=== PATIENT | male | born 1980 | race Caucasian/White ===

== ENCOUNTER 2023-04-09 18:48 | Emergency (ER) | payer OTHER, SELFPAY ==
[2023-04-09 18:50] VITALS: BP 168/83; PULSE 94; RESP 14; TEMP 36.4; O2SAT 98; BMI 30.7
--- NOTE | 2023-04-09 19:22 | RAD_ITS ---
STUDY: X-RAY - RIGHT TIBIA AND FIBULA REASON FOR EXAM: Male, 42 years old. injury TECHNIQUE: 2 view(s) of the tibia and fibula were obtained. COMPARISON: None. FINDINGS: Normal visualized tibia. Normal visualized fibula. There is no demonstrated acute fracture. Mild soft tissue swelling at the ankle. RAD/Tibia & Fibula 2 Views IMPRESSION: Minimal soft tissue swelling at the ankle, otherwise unremarkable x-ray examination of the tibia and fibula. Electronically Signed: Hellen Gomez MD at 19:45 EDT ,
--- NOTE | 2023-04-09 19:38 | EDS_ITS ---
<Statement entered by Freda Alva MD - 04/10/23 00:32> I have personally performed a face to face assessment of the patient and have reviewed the CONSTANZA Note. Patient presents secondary to right lower extremity injury. Patient fell last Tuesday hitting his right leg. He has been taking ibuprofen and trying to elevate his leg. Patient lying in bed no acute distress. Head neck examination reveals no external sign of trauma. Heart is regular rate and rhythm. Lung sounds are clear. Abdomen is soft and nontender. Right lower extremity examination reveals a small area of edema and ecchymosis over the right pillai. There is some dependent ecchymosis noted along the medial ankle. No tenderness over the foot itself. Good distal pulses. Right tib-fib x-rays reveal no evidence of bony injury. Patient is given a single dose of analgesics here and given a prescription for naproxen at home. We discussed the importance of icing and elevating above the level of his heart. He is given Darian wrap's to use for light compression. Return instructions given. HPI History of Present Illness Chief Complaint: Lower Extremity Injury Narrative Narrative: Patient presenting today with an injury to his right lower extremity that he has had since Tuesday. 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 He did not hit his head and denies any other injury. He reports that his work did not allow him to take any days off to get this checked out and he has been on his feet since except for today. He has been taking ibuprofen without relief of his pain. [facility] Medical History no medical history Home Medications naproxen 500 mg tablet 500 mg PO BID #14 tabs 04/09/23 [Rx Last Taken Unknown] Allergy/AdvReac Type Severity Reaction Status Date / Time Penicillins Allergy Anaphylaxis Verified 04/09/23 18:50 Surgical History no surgical history ROS ROS ED Constitutional Constitutional ED: Denies chills or fever(s) Cardiovascular Cardiovascular: Denies chest pain Respiratory/Chest Respiratory/Chest: Denies cough or dyspnea Musculoskeletal Musculoskeletal: Reports arthralgias; Denies back pain or neck pain Integumentary Denies Abrasions Neurologic Neurologic: Denies weakness EXAM Physical Exam Const Vital Signs: 04/09/23 18:50 Temperature 97.6 F L Temperature Source Temporal Pulse Rate 94 Respiratory Rate 14 Blood Pressure 168/83 H Blood Pressure Mean 111 Pulse Ox 98 Oxygen Delivery Method Room Air Positive well nourished, well developed and no apparent distress General Appearance ED: well developed HEENT Reports normocephalic and head/scalp atraumatic Mouth ED: Yes moist mucous membranes normal Eyes PERRL and EOMs intact bilaterally Neck full ROM and supple Chest Wall inspection of chest normal Resp normal respiratory effort and clear to auscultation bilaterally Cardio regular rate and regular rhythm GI soft to palpation, non-tender, non-distended and no masses Back/Spine normal ROM and normal to inspection Extremity full ROM Extremity Narrative: Ecchymosis and pain to palpation to the right mid and distal lower extremity. Right DP pulse 2+, good capillary refill, sensation intact. No pain to palpation to the lateral or medial malleolus. Patient is able to wiggle his toes, full range of motion to the right ankle. Neuro oriented x3, CN's II-XII intact bilaterally, moves all extremities, no focal motor deficits and no sensory deficits noted Sensorium / Orientation: awake and alert Psych mental status grossly normal and thought process normal Skin no rashes or lesions noted and no wounds MDM MDM MDM Narrative Medical decision making narrative: Patient presenting today with ecchymosis and pain to his right pillai that he has had since Tuesday after falling off a machine at work and hitting his right pillai against a metal object. X-ray of the tibia/fibula was obtained to rule out fracture and is negative. No pain to palpation to the right ankle, very minimal pain to palpation to the right foot but patient reports that his foot is not really giving him pain when he is walking, it is the leg that hurts. He has not been able to really stay off of his leg due to work which has been worsening his symptoms. He was given a Percocet here for pain. He will be given naproxen for home, been given RICE instructions and is to alternate naproxen and Tylenol for his pain as needed. He will be discharged home in stable condition and is comfortable with plan. Radiography X-Ray: Read by ED Physician and Read by Radiologist Diagnostic Testing: Clinical Impression(s) from Imaging Studies Tibia/Fibula X-Ray 04/09/23 19:22 IMPRESSION: Minimal soft tissue swelling at the ankle, otherwise unremarkable x-ray examination of the tibia and fibula. Electronically Signed: Hellen Gomez MD at 19:45 EDT , Discharge Plan Triage Chief Complaint: Lower Extremity Injury ED Midlevel Provider: Paola Bruce ED Provider: Freda Avla Dx/Rx/DC Orders Clinical Impression: Contusion of leg, right Instructions: ED Contusion, Lower Extremity Prescriptions: New naproxen 500 mg tablet 500 mg PO BID Qty: 14 0RF Primary Care Provider: Care Physician,No Primary Referrals: Care Physician,No Primary [Primary Care Provider] - Activity Restrictions/Additional Instructions: Keep your leg elevated, ice it several times a day for the next few days, alternate Tylenol and naproxen for your pain. Disposition Disposition: Home, Self Care
[2023-04-09] MEDS: Oxycodone/Apap 5/325 Tablet PO (19:56)
[2023-04-09 20:09] VITALS: BP 137/80; PULSE 90; RESP 14; O2SAT 98
== END 2023-04-09 20:19 | disposition home or self-care (01) ==
PROVIDERS: Emergency Provider Emergency Medicine; Visit Provider Emergency Medicine
DX: S80.11XA Contusion of right lower leg, initial encounter (principal); W19.XXXA Unspecified fall, initial encounter
CPT/HCPCS: 73590; 99283